=== PATIENT | female | born 1965 | race Caucasian/White ===

== ENCOUNTER → 2019-01-10 | Day surgery (SDC) | payer OTHER ==
[~2019-01-10] MED LIST: Lactated Ringers 1,000 ML IV SCH; Midazolam 1 MG/ML 2 ML SDV IV ONE; fentaNYL 100 MCG/2 ML SDV IV ONE
--- NOTE | 2019-01-10 11:58 | OR ---
DATE OF OPERATION: 01/10/2019 PREOPERATIVE DIAGNOSIS: PERSONAL HISTORY OF POLYPS. POSTOPERATIVE DIAGNOSIS: PERSONAL HISTORY OF POLYPS. SURGEON: Toni Romero MD PROCEDURE: TOTAL COLONOSCOPY. ANESTHESIA: Conscious sedation with IV Versed and fentanyl. SPECIMEN: None. FINDINGS: Significant sigmoid diverticulosis with a few scattered diverticula throughout the colon, but otherwise normal. RECOMMENDATIONS: Followup colonoscopy in 10 years for screening, earlier for symptoms. INDICATIONS: This is a 53-year-old female, who is here for colonoscopy. DESCRIPTION OF PROCEDURE: After adequate preparation, the colonoscope was inserted into the rectum. This was quite difficult to maneuver through the sigmoid secondary to the extensive diverticulosis. I was able to finally thread the scope through the sigmoid and from that point on the colonoscopy was routine. The cecum was visualized and a photograph of this was taken. I also could palpate through the right lower quadrant and the light was shining through the right lower quadrant confirming cecal placement. The bowel prep was good. On withdrawal of the scope, there were no masses or polyps. She does have scattered diverticula throughout the colon, but most significantly in the sigmoid area. Rectal and anal examination were normal. Air was suctioned from the colon and the scope removed. BPB/MODL /[id number]
== END ==
LOC: CC.SDS 07:26
PROVIDERS: ATTEND Surgery
DX: Z12.11 Encounter for screening for malignant neoplasm of colon (principal); K57.30 Diverticulosis of large intestine without perforation or abscess without bleeding; K86.89 Other specified diseases of pancreas; E03.9 Hypothyroidism, unspecified; F41.9 Anxiety disorder, unspecified; D25.9 Leiomyoma of uterus, unspecified; L30.9 Dermatitis, unspecified; Z88.1 Allergy status to other antibiotic agents; Z86.010 Personal history of colon polyps; Z79.51 Long term (current) use of inhaled steroids; Z79.899 Other long term (current) drug therapy
CPT/HCPCS: 36415; 84703; G0105; J2250; J3010